=== PATIENT | male | born 1990 | race Caucasian/White ===

== ENCOUNTER → 2021-02-23 | Outpatient (CLI) | payer OTHER, SELFPAY ==
[2021-02-23 17:04] LABS: Microalbumin:Creatinine Ratio 9.1 mg/g CRE (<30 mg/g CRE)
== END | disposition home or self-care (01) ==
LOC: LABSPEC 15:01
PROVIDERS: Referring Provider Nurse Practitioner Family; Visit Provider Nurse Practitioner Family
DX: E11.9 Type 2 diabetes mellitus without complications (principal)
CPT/HCPCS: 82043; 82570

== ENCOUNTER → 2021-12-21 | Outpatient (CLI) | payer OTHER, SELFPAY ==
[2021-12-21 15:58] LABS: Vitamin D,25 Hydroxy 16.6 ng/mL
[2021-12-21 16:02] LABS: ALB/GLOB Ratio 1.1 RATIO (0.9-2.4); AST(SGOT) 13 U/L (15-37); Alanine Aminotransfer ALT/SGPT 23 U/L (16-61); Albumin, Serum 4.2 g/dL (3.2-5.0); Alkaline Phosphatase 104 U/L (45-117); Anion Gap 8 (5-15); BUN 14 mg/dL (7-18); BUN/Creat Ratio 12.7 RATIO (10-20); Calcium,Total 9.3 mg/dL (8.5-10.1); Chloride 103 mmol/L (98-107); Cholesterol 211 mg/dL (200); EST Glomerular Filtration Rate 83 mL/min (>60); Est Glom Filt Rate - Afr Amer 101 mL/min (>60); Globulin 3.7 g/dL (2.2-4.2); Glucose 246 mg/dL (74-106); High Density Lipoprotein 79 mg/dL; Potassium 3.7 mmol/L (3.5-5.1); Protein, Total 7.9 g/dL (6.4-8.2); Sodium Level 136 mmol/L (136-145); T4 Free Direct 1.09 ng/dL (0.76-1.46); Thyroid Stim Hormone (TSH) 1.05 uIU/mL (0.358-3.74); Triglycerides 105 mg/dL; Very Low Density Lipoprotein 21 mg/dL (5-40)
== END | disposition home or self-care (01) ==
LOC: LAB 14:29
PROVIDERS: Referring Provider Nurse Practitioner Family; Visit Provider Nurse Practitioner Family
DX: E10.9 Type 1 diabetes mellitus without complications (principal); E03.9 Hypothyroidism, unspecified
CPT/HCPCS: 36415; 80053; 80061; 82306; 84439; 84443

== ENCOUNTER → 2023-04-04 | Outpatient (CLI) | payer OTHER, SELFPAY ==
[2023-04-04 14:44] LABS: Vitamin B12 380 pg/mL (211-911); Vitamin D,25 Hydroxy 23.7 ng/mL
[2023-04-04 14:49] LABS: ALB/GLOB Ratio 1.2 RATIO (0.9-2.4); AST(SGOT) 13 U/L (15-37); Alanine Aminotransfer ALT/SGPT 23 U/L (16-61); Albumin, Serum 4.4 g/dL (3.2-5.0); Alkaline Phosphatase 114 U/L (45-117); Anion Gap 4 (5-15); BUN 9 mg/dL (7-18); BUN/Creat Ratio 8.8 RATIO (10-20); Calcium,Total 9.7 mg/dL (8.5-10.1); Chloride 107 mmol/L (98-107); Cholesterol 242 mg/dL (200); Creatinine, Serum 1.02 mg/dL (0.70-1.30); EST Glomerular Filtration Rate 90 mL/min (>60); Est Glom Filt Rate - Afr Amer 109 mL/min (>60); Globulin 3.7 g/dL (2.2-4.2); Glucose 93 mg/dL (74-106); High Density Lipoprotein 72 mg/dL; Potassium 4.2 mmol/L (3.5-5.1); Protein, Total 8.1 g/dL (6.4-8.2); Sodium Level 139 mmol/L (136-145); T4 Free Direct 1.06 ng/dL (0.76-1.46); Thyroid Stim Hormone (TSH) 2.18 uIU/mL (0.358-3.74); Triglycerides 141 mg/dL; Very Low Density Lipoprotein 28 mg/dL (5-40)
== END | disposition home or self-care (01) ==
PROVIDERS: Referring Provider Internal Medicine Endocrinology, Diabetes & Metabolism; Visit Provider Internal Medicine Endocrinology, Diabetes & Metabolism
DX: E03.9 Hypothyroidism, unspecified (principal); E10.65 Type 1 diabetes mellitus with hyperglycemia; E10.9 Type 1 diabetes mellitus without complications; R20.2 Paresthesia of skin; E55.9 Vitamin D deficiency, unspecified
CPT/HCPCS: 36415; 80053; 80061; 82306; 82607; 84439; 84443

== ENCOUNTER 2023-09-21 10:37 | Emergency (ER) | payer OTHER, SELFPAY ==
[2023-09-21 10:37] VITALS: BP 149/101; PULSE 78; RESP 16; TEMP 36.3; O2SAT 98; BMI 24.1
--- NOTE | 2023-09-21 10:50 | EX.ED.DYSGE1 ---
HPI History of Present Illness Chief Complaint: Foreign Body Informant: patient Onset/Context/Timing Onset: Yesterday Context: Gradual Onset Timing: Continuous Quality: High-pitched tinnitus Location: Right ear Worsened by: Nothing Relieved by: Drowning out the sound Narrative Narrative: Patient presents with foreign body in his right ear that occurred yesterday. Patient states that he got the cotton tip of a Q-tip stuck in his right ear. Patient states he has been having some tinnitus that has gotten worse since that time. Patient states it is high-pitched. Patient states it is only in his right ear. Patient states nothing makes it worse. Patient states it is better when something is able to drown out the sound. Patient admits to some mild pain in his right ear. Patient states he did break up to a sweat last night and had some nausea last night. Patient admits to a headache. [facility] Medical History (Updated 09/21/23 @ 11:[address] Duglas Nava, DO) Hypothyroidism Paresthesia of both feet Presence of insulin pump Seizure disorder Type 1 diabetes mellitus Home Medications blood sugar diagnostic #10 ea 02/23/21 [History Last Taken Unknown] insulin syringe-needle U-100 1/2 mL 31 gauge x 15/64 #10 ea 02/23/21 [History Last Taken Unknown] zonisamide 100 mg capsule 500 mg PO DAILY 02/23/21 [History Last Taken Unknown] cenobamate 200 mg tablet (Xcopri) 200 mg PO 12/21/21 [History Last Taken Unknown] insulin syringe-needle U-100 0.3 mL 31 gauge x 5/16 (BD Insulin Syringe Ultra-Fine) #120 ea 05/07/22 [Rx Last Taken Unknown] pen needle, diabetic 31 gauge x 3/16 #50 ea 05/07/22 [Rx Last Taken Unknown] insulin pump cartridge,automated dose,BT with controller subcutaneous (Omnipod 5 G6 Intro Kit (Gen 5) subcutaneous cartridge with controller) #1 ea 02/14/23 [Rx Last Taken Unknown] insulin syr/ndl U100 half candice 0.5mL 31 gauge x 15/64 (Droplet Insulin Syringe (half unit)) #400 ea 02/14/23 [Rx Last Taken Unknown] levothyroxine 150 mcg tablet 150 mcg PO DAILY #90 tabs 04/17/23 [Rx Last Taken Unknown] insulin lispro 100 unit/mL subcutaneous solution 60 unit (0.6 mL) subcut DAILY #60 mL 08/19/23 [Rx Last Taken Unknown] Omnipod 5 G6 Pods (Gen 5) (insulin pump cart,automated,BT) #10 ea 08/29/23 [Rx Last Taken Unknown] blood-glucose sensor (Dexcom G6 Sensor device) #9 ea 08/29/23 [Rx Last Taken Unknown] blood-glucose transmitter (Dexcom G6 Transmitter device) #1 ea 08/29/23 [Rx Last Taken Unknown] clonazepam 1 mg tablet 1 mg PO BID PRN 08/29/23 [History Last Taken Unknown] lamotrigine 200 mg tablet,extended release 24 hr 200 mg PO QDAY 08/29/23 [History Last Taken Unknown] amoxicillin 500 mg tablet 500 mg PO TID #30 tabs 09/21/23 [Rx Last Taken Unknown] ciprofloxacin 0.2 %-hydrocortisone 1 % ear drops,suspension (Cipro HC) 3 drp RIGHT EAR BID 7 days #10 mL 09/21/23 [Rx Last Taken Unknown] Allergy/AdvReac Type Severity Reaction Status Date / Time morphine Allergy Intermediate headache/ra Verified 09/21/23 10:39 sh adhesive tape AdvReac Intermediate rash Verified 09/21/23 10:39 Surgical History no surgical history no surgical history Social History Smoking Status: Former smoker ROS ROS ED Constitutional Constitutional ED: Reports sweats; Denies chills or fever(s) Eyes Eyes: Denies blurry vision or change in vision ENT ENT ED: Reports ear pain right; Denies rhinorrhea or sore throat Cardiovascular Cardiovascular: Denies chest pain or palpitations Respiratory/Chest Respiratory/Chest: Denies cough or dyspnea Gastrointestinal Gastrointestinal: Reports nausea; Denies vomiting Musculoskeletal Musculoskeletal: Denies back pain or neck pain Integumentary Denies abscess or rash Neurologic Neurologic: Reports headache(s) Allergic/Immunologic Allergic/Immunologic ED: Denies tongue swelling or urticaria EXAM Physical Exam Const Vital Signs: 09/21/23 10:37 09/21/23 11:16 Temperature 97.4 F L Temperature Source Temporal Pulse Rate 78 Respiratory Rate 16 Respiratory Effort Normal Respiratory Pattern Normal Blood Pressure 149/101 H Blood Pressure Mean 117 Pulse Ox 98 Oxygen Delivery Method Room Air Positive well nourished and well developed General Appearance ED: well developed and NAD HEENT Reports TM's clear and moist mucous membranes HEENT Narrative: There is a foreign body in the right external auditory canal that is consistent with cotton. There is some mild edema of the external auditory canal on the right. The left tympanic membrane and external auditory canal are clear. Neck is supple. Trachea is midline. No JVD or lymphadenopathy noted. Oral mucosa is pink and moist. Oropharynx is clear. Airway is patent. Tympanic Membrane ED: Yes TM's clear left Neck no lymphadenopathy, supple and no JVD Resp normal respiratory effort and clear to auscultation bilaterally Cardio regular rate and regular rhythm GI non-tender and non-distended Palpation: soft Neuro oriented x3, CN's II-XII intact bilaterally and no sensory deficits noted Sensorium / Orientation: alert Motor Exam: strength 5/5 throughout MDM MDM MDM Narrative Medical decision making narrative: The right external auditory canal was irrigated. Patient was having difficulty tolerating ear irrigation. On reevaluation, there is no foreign body visualized. The external auditory canal is edematous and erythematous. There is some mild purulent drainage noted. The right tympanic membrane is mildly erythematous. Patient was given a prescription for amoxicillin and Cipro HC otic drops. Patient was instructed to follow-up with ENT as scheduled. Patient was instructed to return if worse in any way. Patient understood and was agreeable with the plan. All questions were answered. Discharge Plan Triage Chief Complaint: Foreign Body ED Provider: Duglas Nava Dx/Rx/DC Orders Clinical Impression: Acute right otitis media, Tinnitus of right ear, Acute otitis externa of right ear Instructions: ED External Ear Infection (Adult) Prescriptions: New amoxicillin 500 mg tablet 500 mg PO TID Qty: 30 0RF Cipro HC 0.2-1 % drops,suspension 3 drp RIGHT EAR BID 7 Days Qty: 10 0RF No Action (DME) insulin syringe-needle U-100 1/2 mL 31 gauge x 15/64 syringe See Rx Instructions .ROUTE .MEDSUPPLY Qty: 10 Rx Instructions: As directed (DME) OneTouch Verio test strips Strip See Rx Instructions .ROUTE .MEDSUPPLY Qty: 10 Rx Instructions: As directed zonisamide 100 mg capsule 500 mg PO DAILY Xcopri 200 mg tablet 200 mg PO (DME) insulin syringe-needle U-100 [BD Insulin Syringe Ultra-Fine] 0.3 mL 31 gauge x 5/16 syringe See Rx Instructions .ROUTE .MEDSUPPLY Qty: 120 6RF Rx Instructions: 4x/day (DME) pen needle, diabetic 31 gauge x 3/16 needle See Rx Instructions .ROUTE .MEDSUPPLY Qty: 50 6RF Rx Instructions: As directed (DME) Droplet Insulin Syr(half unit) 0.5 mL 31 gauge x 15/64 syringe See Rx Instructions .Route Qty: 400 3RF Rx Instructions: 4 times daily (DME) Omnipod 5 G6 Intro Kit (Gen 5) Cartridge See Rx Instructions .Route Qty: 1 0RF Rx Instructions: As directed lamotrigine 200 mg tablet extended release 24hr 200 mg PO QDAY clonazepam 1 mg tablet 1 mg PO BID PRN (DME) Dexcom G6 Sensor Device See Rx Instructions .Route Qty: 9 1RF Rx Instructions: 1 sensor q 10 days (DME) Dexcom G6 Transmitter Device See Rx Instructions .Route Qty: 1 3RF Rx Instructions: As directed (DME) Omnipod 5 G6 Pods (Gen 5) Cartridge See Rx Instructions .Route Qty: 10 6RF Rx Instructions: As directed levothyroxine 150 mcg tablet 150 mcg PO DAILY Qty: 90 2RF insulin lispro 100 unit/mL solution 60 unit subcut DAILY Qty: 60 1RF Primary Care Provider: Care Physician,No Primary Referrals: Kee White MD [Med Staff - Active Staff] - Keep [facility] appointment Care Physician,No Primary [Primary Care Provider] - Disposition Disposition: Home, Self Care
[2023-09-21] MEDS: AMOXICILLIN 500 MG CAPSULE PO (12:03)
[2023-09-21 12:05] VITALS: BP 132/78; PULSE 74; RESP 16; TEMP 36.2; O2SAT 98
== END 2023-09-21 12:06 | disposition home or self-care (01) ==
PROVIDERS: Emergency Provider Emergency Medicine; Visit Provider Emergency Medicine
DX: H66.91 Otitis media, unspecified, right ear (principal); G40.909 Epilepsy, unspecified, not intractable, without status epilepticus; E10.9 Type 1 diabetes mellitus without complications; Z79.4 Long term (current) use of insulin; H60.501 Unspecified acute noninfective otitis externa, right ear; H93.11 Tinnitus, right ear; R51.9 Headache, unspecified; E03.9 Hypothyroidism, unspecified; T16.1XXA Foreign body in right ear, initial encounter; W44.8XXA Other foreign body entering into or through a natural orifice, initial encounter; Z79.890 Hormone replacement therapy; Z96.41 Presence of insulin pump (external) (internal); Z87.891 Personal history of nicotine dependence
CPT/HCPCS: 99284

== ENCOUNTER → 2024-08-22 | Outpatient (CLI) | payer OTHER, SELFPAY ==
[2024-08-22 11:44] LABS: Cholesterol 243 mg/dL (<=200); High Density Lipoprotein 82 mg/dL; Low Density Lipoprotein Calc. 140 mg/dL; Triglycerides 105 mg/dL; Very Low Density Lipoprotein 21 mg/dL (5-40); cholesterol:hdl ratio screen 2.97
[2024-08-22 11:51] LABS: ALB/GLOB Ratio 1.7 RATIO (0.9-2.4); AST(SGOT) 26 U/L (<=37); Alanine Aminotransfer ALT/SGPT 22 U/L (<=46); Albumin, Serum 4.6 g/dL (3.5-5.0); Alkaline Phosphatase 95 U/L (40-129); Anion Gap 12 (5-15); BUN 14 mg/dL (4-19); BUN/Creat Ratio 14.3 RATIO (10-20); Calcium,Total 9.7 mg/dL (7.6-11.0); Chloride 105 mmol/L (98-108); Creatinine, Serum 0.99 mg/dL (0.70-1.20); EST Glomerular Filtration Rate 103 (>60); Globulin 2.6 g/dL (2.2-4.2); Glucose 157 mg/dL (70-99); Potassium 4.7 mmol/L (3.3-5.1); Protein, Total 7.2 g/dL (5.9-8.4); Sodium Level 139 mmol/L (133-145); Total Bilirubin 0.19 mg/dL (0.00-1.30)
[2024-08-22 16:54] LABS: Microalbumin,Random Urine < 12.0 mg/L (NO RANGE EST.); Microalbumin:Creatinine Ratio UNABLE TO CALCULATE mg/g CRE
== END | disposition home or self-care (01) ==
LOC: LAB 10:04
PROVIDERS: Referring Provider Internal Medicine Endocrinology, Diabetes & Metabolism; Visit Provider Internal Medicine Endocrinology, Diabetes & Metabolism
DX: E10.65 Type 1 diabetes mellitus with hyperglycemia (principal); E03.9 Hypothyroidism, unspecified; Z96.41 Presence of insulin pump (external) (internal)
CPT/HCPCS: 36415; 80053; 80061; 82043; 82570; 84443